=== PATIENT | male | born 1945 | race Caucasian/White ===

== ENCOUNTER 2018-11-04 13:39 | Outpatient (CLI) | payer OTHER ==
[~2018-11-04] VITALS: Ht 175.3 cm; Wt 58.5 kg
[2018-11-04] MEDS ORDERED: albuterol 2.5 MG/3 ML nebule ONE (14:55)
[2018-11-04] MEDS ORDERED: albuterol 2.5 MG/3 ML nebule NEB PRN (15:00)
== END 2018-11-04 23:59 | disposition home or self-care (01) ==
LOC: RT 13:39
PROVIDERS: ATTEND Orthopaedic Surgery
DX: C34.92 Malignant neoplasm of unspecified part of left bronchus or lung (principal); J98.4 Other disorders of lung; Z79.899 Other long term (current) drug therapy; Z87.891 Personal history of nicotine dependence
CPT/HCPCS: 94060; 94760

== ENCOUNTER 2018-12-01 14:58 | Outpatient (CLI) | payer OTHER | END 2018-12-01 23:59 | disposition home or self-care (01) | LOC: RT 14:58 | PROVIDERS: ATTEND Orthopaedic Surgery | DX: C34.92 Malignant neoplasm of unspecified part of left bronchus or lung (principal); J98.8 Other specified respiratory disorders; Z87.891 Personal history of nicotine dependence; Z79.899 Other long term (current) drug therapy | CPT/HCPCS: 94010; 94729 ==